=== PATIENT | female | born 1940 | race Two or more races ===

== ENCOUNTER 2019-03-26 07:34 | Outpatient (CLI) | payer OTHER ==
[~2019-03-26 07:34] MED LIST: LODOSYN25 MG; SYNTHROID50 MCG
== END 2019-03-26 07:54 | disposition home or self-care (01) ==
LOC: NUCLEAR 07:34
DX: R07.89 Other chest pain (principal); I20.9 Angina pectoris, unspecified
CPT/HCPCS: 78452; 93017; A9500; J0153

== ENCOUNTER 2019-08-24 07:15 | Outpatient (CLI) | payer OTHER | END 2019-08-24 07:32 | disposition home or self-care (01) | LOC: NUCLEAR 07:15 | DX: J43.2 Centrilobular emphysema (principal); J98.11 Atelectasis; R91.1 Solitary pulmonary nodule; Z77.22 Contact with and (suspected) exposure to environmental tobacco smoke (acute) (chronic) | CPT/HCPCS: 78816; A9552 ==

== ENCOUNTER 2020-09-26 14:01 | Outpatient (CLI) | payer OTHER | END 2020-09-26 15:16 | disposition home or self-care (01) | LOC: OFIC 805 14:01 | PROVIDERS: ATTEND Otolaryngology Otology & Neurotology | DX: R49.0 Dysphonia (principal); R13.12 Dysphagia, oropharyngeal phase; R05 Cough ==

== ENCOUNTER 2024-02-27 13:06 | Emergency (ER) | payer OTHER ==
[~2024-02-27] VITALS: Ht 160 cm; Wt 52.6 kg
[2024-02-27] MEDS ORDERED: GABAPENTIN300 M2 (13:15)
== END 2024-02-27 17:24 | disposition home or self-care (01) ==
LOC: ER 13:06
DX: S49.81XA Other specified injuries of right shoulder and upper arm, initial encounter (principal); T14.90XA Injury, unspecified, initial encounter; W11.XXXA Fall on and from ladder, initial encounter; Y93.89 Activity, other specified; Y92.89 Other specified places as the place of occurrence of the external cause; Y99.8 Other external cause status